=== PATIENT | female | born 1980 | race Caucasian/White ===

== ENCOUNTER 2018-09-11 16:12 | Emergency (ER) | payer SELFPAY ==
[2018-09-11] MEDS ORDERED: Ibuprofen 200 MG TAB ONE (16:47)
== END 2018-09-11 17:30 | disposition home or self-care (01) ==
LOC: SCSER 16:12
DX: J10.1 Influenza due to other identified influenza virus with other respiratory manifestations (principal)
CPT/HCPCS: 87804; 99283